=== PATIENT | male | born 1980 | race Asian ===

== ENCOUNTER 2021-01-26 11:25 | Emergency (ER) | payer OTHER, SELFPAY ==
[2021-01-26 11:26] VITALS: BP 195/131; PULSE 112; RESP 18; TEMP 35.9; O2SAT 98; BMI 52.5
[2021-01-26 11:30] VITALS: BP 181/97; PULSE 110; RESP 12; O2SAT 99
--- NOTE | 2021-01-26 11:38 | EDS_ITS ---
HPI History of Present Illness Chief Complaint: Dizziness Informant: patient Onset/Context/Timing Onset: Today Context: Sudden Onset Timing: Continuous Quality: Spinning sensation Location: Head Worsened by: Movement of his head Relieved by: Nothing Narrative Narrative: Patient presents with dizziness that began today. Patient states that he ate breakfast and then felt tired. Patient states he laid down. Patient states that when he laid down he started to feel like the room was spinning. Patient states this was worse with movement of his head. Patient denies any tinnitus. Patient admits to some pressure in his right ear. Patient denies any headaches. Patient denies any nausea or vomiting. [facility] Medical History Diabetes Home Medications acarbose 100 mg PO/SL DAILY 01/26/21 [History Last Taken Unknown] cholecalciferol (vitamin D3) [Vitamin D3] 25 mcg PO DAILY 01/26/21 [History Last Taken Unknown] dapagliflozin-metformin 1 tab PO DAILY 01/26/21 [History Last Taken Unknown] fenofibrate 160 mg PO QWEEK 01/26/21 [History Last Taken Unknown] glipizide 60 mg PO BID 01/26/21 [History Last Taken Unknown] meclizine 25 mg PO 4X/DAY PRN PRN #20 tab 01/26/21 [Rx Last Taken Unknown] pioglitazone 30 mg PO DAILY 01/26/21 [History Last Taken Unknown] rosuvastatin 10 mg PO DAILY 01/26/21 [History Last Taken Unknown] sitagliptin-metformin 1 tab PO QPM 01/26/21 [History Last Taken Unknown] Allergy/AdvReac Type Severity Reaction Status Date / Time No Known Allergies Allergy Verified 01/26/21 11:33 Surgical History no surgical history no surgical history Social History Smoking Status: Never smoker ROS ROS ED Constitutional Constitutional ED: Denies chills or fever(s) Eyes Eyes: Denies blurry vision or change in vision ENT ENT ED: Denies rhinorrhea or sore throat Cardiovascular Cardiovascular: Denies chest pain or palpitations Respiratory/Chest Respiratory/Chest: Denies cough or dyspnea Gastrointestinal Gastrointestinal: Denies nausea or vomiting Genitourinary Genitourinary ED: Denies dysuria or hematuria Musculoskeletal Musculoskeletal: Denies back pain or neck pain Integumentary Denies abscess or rash Neurologic Neurologic: Denies headache(s) or weakness Allergic/Immunologic Allergic/Immunologic ED: Denies mouth swelling or urticaria EXAM Physical Exam Const Vital Signs: 01/26/21 11:26 01/26/21 11:30 01/26/21 11:52 Temperature 96.7 F L Temperature Source Temporal Pulse Rate 112 H 110 H Respiratory Rate 18 12 Respiratory Effort Normal Non-Labored Respiratory Pattern Normal Blood Pressure 195/131 H 181/97 H Blood Pressure Mean 152 125 Pulse Ox 98 99 Oxygen Delivery Method Room Air Room Air 01/26/21 12:10 Temperature Temperature Source Pulse Rate 102 H Respiratory Rate 13 Respiratory Effort Respiratory Pattern Blood Pressure 156/93 H Blood Pressure Mean 114 Pulse Ox 97 Oxygen Delivery Method Room Air Positive well nourished, well developed and obese General Appearance ED: well developed Nutritional Appearance: obese HEENT Reports moist mucous membranes Eyes PERRL and EOMs intact bilaterally Neck supple and no JVD Resp normal respiratory effort and clear to auscultation bilaterally Cardio regular rate, regular rhythm and no murmurs GI normal to inspection, nondistended, normoactive bowel sounds and non-tender Palpation: soft Extremity normal to inspection General Extremety ED: Negative for edema or tenderness General Extremity: Negative for edema Neuro oriented x3, CN's II-XII intact bilaterally and no sensory deficits noted Sensorium / Orientation: alert Motor Exam: strength 5/5 throughout Psych mental status grossly normal Skin no rashes or lesions noted MDM MDM MDM Narrative Medical decision making narrative: Patient was given a dose of meclizine here. CBC and comprehensive metabolic profile were obtained and were within normal limits. Patient is feeling better on reevaluation. Patient has no further dizziness. Patient was given a prescription for meclizine. Patient was instructed to follow-up with her primary care physician in 5 to 7 days. Patient understood and was agreeable with the plan. All questions were answered. Lab Data Attestation: I reviewed the patient's lab results. Labs: Laboratory Results - last 24 hr 01/26/21 01/26/21 11:45 11:45 WBC 9.2 RBC 5.26 Hgb 15.5 Hct 47.6 MCV 90.5 MCH 29.5 MCHC 32.6 RDW Std Deviation 45.3 H RDW Coeff of Thor 13.6 Plt Count 319 MPV 9.9 Immature Gran % (Auto) 0.800 Neut % (Auto) 65.8 Lymph % (Auto) 22.7 [place] % (Auto) 6.2 Eos % (Auto) 3.6 Baso % (Auto) 0.9 Absolute Neuts (auto) 6.1 Absolute Lymphs (auto) 2.09 Nucleated RBC % 0 Sodium 138 Potassium 4.0 Chloride 103 Carbon Dioxide 29.0 Anion Gap 6 BUN 14 Creatinine 1.06 Estim Creat Clear Calc 86.61 Est GFR (MDRD) Af Amer 99 Est GFR (MDRD) Non-Af 82 BUN/Creatinine Ratio 13.2 Glucose 147 H Calcium 9.1 Total Bilirubin 0.70 AST 25 ALT 28 Alkaline Phosphatase 79 Total Protein 8.9 H Albumin 4.2 Globulin 4.7 H Albumin/Globulin Ratio 0.9 Discharge Plan Triage Chief Complaint: Dizziness ED Provider: Silvino Magallon Dx/Rx/DC Orders Clinical Impression: Vertigo Instructions: ED Vertigo, Unspecified Prescriptions: New meclizine [meclizine] 25 MG tablet 25 mg PO 4X/DAY PRN PRN (Reason: Dizziness) Qty: 20 RF: 0 No Action glipizide 10 mg Tablet 60 mg PO BID RF: 0 pioglitazone 30 mg Tablet 30 mg PO DAILY RF: 0 rosuvastatin 10 mg Tablet 10 mg PO DAILY RF: 0 fenofibrate 160 mg Tablet 160 mg PO QWEEK RF: 0 cholecalciferol (vitamin D3) [Vitamin D3] 25 mcg (1,000 unit) Tablet,Chewable 25 mcg PO DAILY RF: 0 sitagliptin-metformin 100-1,000 mg Tablet, Er Multiphase 24 Hr 1 tab PO QPM RF: 0 dapagliflozin-metformin 10-1,000 mg Tablet, Ir - Er, Biphasic 24hr 1 tab PO DAILY RF: 0 acarbose 100 mg PO/SL DAILY RF: 0 Primary Care Provider: Care Physician,No Primary Referrals: Horacio Barreto MD [STAFF PHYSICIAN] - 5-7 Days Care Physician,No Primary [Primary Care Provider] - Disposition Disposition: Home, Self Care
[2021-01-26] MEDS: Meclizine HCl 25 MG Tablet PO (11:46)
[2021-01-26 11:58] LABS: Absolute Lymphocyte Count 2.09 X10^3/uL (0.83-4.51); Absolute Neutrophil Count 6.1 X10^3/uL (2.0-7.7); Basophil# 0.08 X10^3/uL; Basophil% 0.9 % (0-1); Eosinophil# 0.33 X10^3/uL; Eosinophils% 3.6 % (0-5); Hematocrit 47.6 % (40-54); Hemoglobin 15.5 g/dL (13.0-16.5); Lymphocyte # 2.09 X10^3/ul (0.83-4.51); Lymphocyte % 22.7 % (19-41); Mean Corp Hgb Conc 32.6 g/dL (32-36); Mean Corpuscular Hgb 29.5 pg (27.0-32.0); Mean Corpuscular Volume 90.5 fL (80-94); Mean Platelet Vol. 9.9 fl (6.2-12.0); Monocyte# 0.57 X10^3/uL; Monocyte% 6.2 % (0-10); NRBC Flagged by Analyzer 0 % (0-5); Neutrophil # 6.05 X10^3/uL (2.7-7.7); Neutrophil % 65.8 % (47-70); Platelet Count 319 K/mm3 (150-450); RBC Distribution Width CV 13.6 % (11.6-14.6); RBC Distribution Width SD 45.3 fl (35.1-43.9); Red Blood Count 5.26 M/mm3 (4.6-6.2); White Blood Count 9.2 K/mm3 (4.4-11.0)
[2021-01-26 12:10] VITALS: BP 156/93; PULSE 102; RESP 13; O2SAT 97
[2021-01-26 12:21] LABS: ALB/GLOB Ratio 0.9 RATIO (0.9-2.4); AST(SGOT) 25 U/L (15-37); Alanine Aminotransfer ALT/SGPT 28 U/L (16-61); Albumin, Serum 4.2 g/dL (3.2-5.0); Alkaline Phosphatase 79 U/L (45-117); Anion Gap 6 (5-15); BUN 14 mg/dL (7-18); BUN/Creat Ratio 13.2 RATIO (10-20); Calcium,Total 9.1 mg/dL (8.5-10.1); Chloride 103 mmol/L (98-107); Creatinine, Serum 1.06 mg/dL (0.70-1.30); EST Glomerular Filtration Rate 82 mL/min (>60); Est Glom Filt Rate - Afr Amer 99 mL/min (>60); Estimated Creatinine Clearance 86.61 ml/min; Globulin 4.7 g/dL (2.2-4.2); Glucose 147 mg/dL (74-106); Protein, Total 8.9 g/dL (6.4-8.2); Sodium Level 138 mmol/L (136-145)
[2021-01-26 12:53] VITALS: BP 158/98
== END 2021-01-26 12:54 | disposition home or self-care (01) ==
PROVIDERS: Emergency Provider Emergency Medicine
DX: R42 Dizziness and giddiness (principal); E66.9 Obesity, unspecified; Z68.43 Body mass index [BMI] 50.0-59.9, adult; E11.9 Type 2 diabetes mellitus without complications; Z79.84 Long term (current) use of oral hypoglycemic drugs
CPT/HCPCS: 80053; 85025; 99285; A4216